=== PATIENT | female | born 1990 | race Caucasian/White ===

== ENCOUNTER 2016-08-07 14:13 | Outpatient (CLI) | payer BC ==
[~2016-08-07] VITALS: Ht 167.6 cm; Wt 84.4 kg
[2016-08-07] VITALS (11 sets, daily range): BP systolic 111–141; BP diastolic 68–97
[2016-08-07 15:18] LABS: EOSINOPHIL (%) 2.8 % (0-5); EOSINOPHIL COUNT 0.4 K/uL (0-0.3); IMMATURE GRANULOCYTE (%) 0.3 % (0.0-0.7); LYMPHOCYTE COUNT 1.6 K/uL (1.0-2.8); MCH 29.9 PG (29.0-34.0); MCHC 33.8 G/DL (30.0-36.0); MCV 88.6 FL (83-99); MEAN PLAT.VOLUME 10.2 uM^3 (9.5-12.4); MONOCYTE (%) 8.6 % (3-12); MONOCYTE COUNT 1.1 K/uL (0-0.8); NEUTROPHIL (%) 75.6 % (45-76); NEUTROPHIL COUNT 9.5 K/uL (1.8-6.4); PLATELET COUNT 225 K/uL (156-360); RBC DIS.WIDTH-CV 13.3 % (11.8-14.6); RBC DIS.WIDTH-SD 42.9 % (39-53); RED BLOOD COUNT 3.61 M/uL (3.80-5.20); WHITE BLOOD COUNT 12.5 K/uL (4.1-10.2)
[2016-08-07 15:37] LABS: ALKALINE PHOSPHATASE 82 IU/L (3-129); ANION GAP 9 MEQ/L (2-14); CHLORIDE 107 MEQ/L (99-109); GFR ESTIMATE (CALCULATED) > 59 mL/min/; GLUCOSE 71 mg/dL (70-99); POTASSIUM 3.9 MEQ/L (3.7-5.4); SAMPLE HEMOLYSIS CHECK 0; SAMPLE ICTERIC CHECK 0; SAMPLE LIPEMIA CHECK 0; SODIUM 138 MEQ/L (136-147); TOTAL BILIRUBIN 0.3 MG/DL (0.0-1.0); UREA NITROGEN (BUN) 10 mg/dL (9-23)
[2016-08-07 17:00] LABS: UR CREATININE CONCENTRATION 36.6 MG/DL
== END 2016-08-07 17:30 | disposition home or self-care (01) ==
LOC: LDRP-OP 14:13 → 2WEST 14:14 → LDRP-OP 09-05 10:13
PROVIDERS: Midwife
DX: O16.3 Unspecified maternal hypertension, third trimester (principal); O99.89 Other specified diseases and conditions complicating pregnancy, childbirth and the puerperium; Z3A.39 39 weeks gestation of pregnancy
CPT/HCPCS: 59025; 80053; 82570; 84156; 85025; G0378

== ENCOUNTER 2016-08-10 15:27 | Inpatient (IN) | payer BC ==
[~2016-08-10] VITALS: Ht 167.6 cm; Wt 85.3 kg
[2016-08-10] VITALS (11 sets, daily range): BP systolic 113–149; BP diastolic 62–95
[2016-08-10] MEDS ORDERED: PRENATAL TABLE1 EAC3 PO (16:08)
[2016-08-10] MEDS ORDERED: VITAMIN C1000 MG PO (16:09)
[2016-08-10] MEDS ORDERED: VITAMIN D5000 UNI1 PO (16:09)
[2016-08-10] MEDS ORDERED: FOLBIC RF TABL1 EACH PO (16:09)
[2016-08-10 16:49] LABS: EOSINOPHIL (%) 2.3 % (0-5); EOSINOPHIL COUNT 0.3 K/uL (0-0.3); IMMATURE GRANULOCYTE (%) 0.3 % (0.0-0.7); LYMPHOCYTE COUNT 1.9 K/uL (1.0-2.8); MCH 29.3 PG (29.0-34.0); MCHC 32.6 G/DL (30.0-36.0); MCV 89.9 FL (83-99); MEAN PLAT.VOLUME 10.3 uM^3 (9.5-12.4); MONOCYTE (%) 6.4 % (3-12); MONOCYTE COUNT 0.8 K/uL (0-0.8); NEUTROPHIL (%) 76.2 % (45-76); NEUTROPHIL COUNT 9.8 K/uL (1.8-6.4); PLATELET COUNT 217 K/uL (156-360); RBC DIS.WIDTH-CV 13.4 % (11.8-14.6); RBC DIS.WIDTH-SD 43.2 % (39-53); RED BLOOD COUNT 3.45 M/uL (3.80-5.20); WHITE BLOOD COUNT 12.9 K/uL (4.1-10.2)
[2016-08-10 17:32] LABS: ANION GAP 8 MEQ/L (2-14); CHLORIDE 106 MEQ/L (99-109); POTASSIUM 3.8 MEQ/L (3.7-5.4); SAMPLE HEMOLYSIS CHECK 0; SAMPLE ICTERIC CHECK 0; SAMPLE LIPEMIA CHECK 0; SODIUM 136 MEQ/L (136-147)
[2016-08-10 17:35] LABS: TOTAL BILIRUBIN 0.2 MG/DL (0.0-1.0)
[2016-08-10 17:37] LABS: ALKALINE PHOSPHATASE 91 IU/L (3-129); GFR ESTIMATE (CALCULATED) > 59 mL/min/; GLUCOSE 109 mg/dL (70-99); UREA NITROGEN (BUN) 10 mg/dL (9-23)
[2016-08-10 18:32] LABS: UR CREATININE CONCENTRATION 45.4 MG/DL
[2016-08-11] VITALS (31 sets, daily range): BP systolic 112–155; BP diastolic 59–106
[2016-08-12] VITALS (24 sets, daily range): BP systolic 104–165; BP diastolic 60–89
[2016-08-13 00:21] VITALS: BP 119/68
[2016-08-13 03:16] VITALS: BP 124/66
[2016-08-13 06:16] LABS: EOSINOPHIL (%) 0.8 % (0-5); EOSINOPHIL COUNT 0.2 K/uL (0-0.3); HEMATOCRIT 25.3 % (36.0-46.0); IMMATURE GRANULOCYTE (%) 0.4 % (0.0-0.7); IMMATURE GRANULOCYTE COUNT 0.1 K/uL; LYMPHOCYTE COUNT 2.3 K/uL (1.0-2.8); MCHC 33.6 G/DL (30.0-36.0); MCV 89.4 FL (83-99); MEAN PLAT.VOLUME 10.2 uM^3 (9.5-12.4); MONOCYTE (%) 6.8 % (3-12); MONOCYTE COUNT 1.5 K/uL (0-0.8); NEUTROPHIL (%) 81.4 % (45-76); NEUTROPHIL COUNT 17.8 K/uL (1.8-6.4); PLATELET COUNT 161 K/uL (156-360); RBC DIS.WIDTH-CV 13.6 % (11.8-14.6); RBC DIS.WIDTH-SD 44.6 % (39-53); RED BLOOD COUNT 2.83 M/uL (3.80-5.20)
[2016-08-13 06:17] LABS: WHITE BLOOD COUNT 21.9 K/uL (4.1-10.2)
[2016-08-13 07:57] VITALS: BP 135/93
[2016-08-13 12:06] VITALS: BP 136/90
[2016-08-13 16:21] VITALS: BP 123/79
[2016-08-13 19:23] VITALS: BP 132/86
[2016-08-14 00:21] VITALS: BP 127/76
[2016-08-14 03:56] VITALS: BP 122/70
[2016-08-14] MEDS ORDERED: IBUPROFEN800 MG PO (17:28)
== END 2016-08-14 20:10 | disposition home or self-care (01) | DRG 775 ==
LOC: LDRP-OP 15:27 → 2WEST 15:28 → LDRP-OP 09-05 13:22
PROVIDERS: Nurse Practitioner; Obstetrics & Gynecology
PROC: 0KQM0ZZ Repair Perineum Muscle, Open Approach (ICD-10-PCS; principal; 2016-08-12)
PROC: 0U7C7ZZ Dilation of Cervix, Via Natural or Artificial Opening (ICD-10-PCS; principal; 2016-08-12)
PROC: 10E0XZZ Delivery of Products of Conception, External Approach (ICD-10-PCS; principal; 2016-08-12)
PROC: 00HU33Z Insertion of Infusion Device into Spinal Canal, Percutaneous Approach (ICD-10-PCS; principal; 2016-08-12)
PROC: 10907ZC Drainage of Amniotic Fluid, Therapeutic from Products of Conception, Via Natural or Artificial Opening (ICD-10-PCS; principal; 2016-08-12)
PROC: 3E0R3CZ (ICD-10-PCS; principal; 2016-08-12)
DX: O13.4 Gestational [pregnancy-induced] hypertension without significant proteinuria, complicating childbirth (principal); O41.1230 Chorioamnionitis, third trimester, not applicable or unspecified; A69.20 Lyme disease, unspecified; O99.344 Other mental disorders complicating childbirth; O70.1 Second degree perineal laceration during delivery; F41.8 Other specified anxiety disorders; Z3A.40 40 weeks gestation of pregnancy; Z37.0 Single live birth
CPT/HCPCS: 80053; 82570; 84156; 85025; 87070; 87075; 87077; 87186; 87205; C1755; G0378; J0295; J0595; J3010; J7050; J7120